=== PATIENT | male | born 1990 | race Caucasian/White ===

== ENCOUNTER 2024-08-04 15:45 | Emergency (ER) | payer OTHER, SELFPAY ==
[2024-08-04 15:50] VITALS: BP 120/89
[2024-08-04 16:14] LABS: % Basophils 0.4 % (0-2); % Eosinophils 2.5 % (0-6); % Immature Granulocytes 0.5 % (0-0.5); % Lymphocytes 9.4 % (20.5-51.1); % Monocytes 8.4 % (1.7-9.3); % Neutrophils 78.8 % (42.2-75.2); Absolute Basophils 0.1 10^3/uL (0-0.2); Absolute Eosinophils 0.4 10^3/uL (0-0.7); Absolute Immature Granulocytes 0.1 10^3/uL (0-0.05); Absolute Lymphocytes 1.6 10^3/uL (1.2-3.4); Absolute Monocytes 1.4 10^3/uL (0.1-0.6); Absolute Neutrophils 13.1 10^3/uL (1.4-6.5); Hematocrit 41.9 % (39.0-52.0); Hemoglobin 14.5 g/dL (13.0-18.0); Mean Corp Hgb Conc. 34.6 g/dL (33.0-37.0); Mean Corpuscular Hgb 29.5 pg (27.0-31.0); Mean Corpuscular Volume 85.2 fL (80.0-94.0); Nucleated Red Blood Cells % 0 % (-); Platelet Count 282 10^3/uL (130-400); Red Blood Cell Count 4.92 10^6/uL (4.70-6.10); Red Cell Dist. Width 12.9 % (11.5-14.5); White Blood Cell Count 16.7 10^3/uL (4.8-10.8)
[2024-08-04 16:24] LABS: ALT (SGPT) 53 U/L (0-50); AST (SGOT) 26 U/L (17-59); Albumin 4.6 g/dl (3.5-5.0); Alkaline Phosphatase 30 U/L (38-126); Blood Urea Nitrogen 15 mg/dl (9-20); Calcium 9.4 mg/dl (8.4-10.2); Carbon Dioxide 26 mmol/L (22-30); Chloride 99 mmol/L (98-107); Glucose 101 mg/dl (70-99); Potassium 4.4 mmol/L (3.5-5.1); Sodium 139 mmol/L (135-145); Total Bilirubin 1.4 mg/dl (0.2-1.3); Total Protein 7.8 g/dl (6.3-8.2); eGFR > 60.00
[2024-08-04 16:29] LABS: Lipase 22 U/L (23-300)
[2024-08-04 18:00] VITALS: BP 112/78
[2024-08-04] MEDS: NSS 1000 IV (18:17)
[2024-08-04] MEDS: TORADOL 30 MG IV (18:17)
[2024-08-04] MEDS: ZOFRAN 4 MG IV (18:17)
--- NOTE | 2024-08-04 18:17 | ED.GENMED ---
History of Present Illness
General
Chief Complaint: Abdominal Pain
Source: patient
Time Seen by Provider: 08/04/24 17:58
History of Present Illness
History of Present Illness:
32-year-old male with no significant past medical history presenting to the emergency department for evaluation of abdominal pain mainly along the left side accompanied with nausea, decreased p.o. intake and some loose stool that has been ongoing
for about 3 days where the pain has been more pronounced but does note around a month ago was having some generalized abdominal discomfort but that had resolved on its own. Patient initially thought the pain was related to nerves and anxiety over
getting engaged at the beginning of the month and does believe his symptoms did improve following this but that the pain started up again 3 days ago but this time much worse. Patient denies any fevers but does admit to some chills. Mild nausea
without any vomiting, also notes yesterday he urinated approximately 15 times and states the urine was a little bit 'frothy'. Social history was noted for quitting tobacco/chew 4 years ago. Surgical history was noncontributory
Past History
Past History
ED Past Medical History: None
ED Past Surgical History: Orthopedic (Knee surgery)
Social History
Tobacco: Former smoker
Alcohol: Occasional
Drug: None
Personal: Single
Living: with family
Employment: Not employed
Family History
Family History: Diabetes (Grandparents with history of diabetes); Negative Early CAD
Review of Systems
Review of Systems
All Other Systems: ROS reviewed and negative except as documented in HPI and ROS
Phy Exam
Physical Exam
Physical Exam:
GENERAL: Alert , in no apparent distress, overweight
EYE: clear conjunctiva b/l
HEAD: NCAT
ENT: o/p clr, mmm.
CARDIAC: Borderline tachycardic rate and rhythm
LUNGS: Clear breath sounds bilaterally, no acute respiratory distress, no wheezes/rales/rhonchi
ABDOMEN: Soft, moderate tenderness within the left mid abdomen, no r/g, grimacing with palpation of the mid abdomen along the left side
NEUROLOGICAL: Alert and oriented
SKIN: Warm and dry, skin intact.
MUSCULOSKELETAL: well perfused.
PSYCH: Normal and appropriate interaction.
Scores
Heart Failure Risk
Heart Failure Risk Score: Not Applicable
Heart Score for Chest Pain Patients
STEMI patient?: Not applicable
Withdrawal Assessment of Alcohol
Withdrawal Assessment Completed?: Not applicable
Course
Orders/Labs/Results
Orders:
Orders
08/04/24 16:02
Complete Blood Count/With Diff Urgent
Comprehensive Metabolic Panel Urgent
Lipase Urgent
08/04/24 18:08
CT Abd/pelvis W Iv Cont Urgent
Comment:
Reason For Exam: left sided abd pain, decreased PO intake
0.9% Sodium Chloride 1000 ml [Nss] 1,000 ml IV BOLUS
Ketorolac [Toradol] 30 mg IV NOW STA
Ondansetron Injectable [Zofran] 4 mg IV NOW STA
08/04/24 19:42
Amoxicillin 875 mg/Clav 125 mg [Augmentin 875 mg/125 mg] 1 tablet PO NOW STA
Abnormal Lab Results
08/04/24
16:02
WBC 16.7 H 10^3/uL
(4.8-10.8)
Abs Immat Gran (auto) 0.1 H 10^3/uL
(0-0.05)
Absolute Neuts (auto) 13.1 H 10^3/uL
(1.4-6.5)
Absolute Monos (auto) 1.4 H 10^3/uL
(0.1-0.6)
Neutrophils % 78.8 H %
(42.2-75.2)
Lymphocytes % 9.4 L %
(20.5-51.1)
Glucose 101 H mg/dl
(70-99)
Total Bilirubin 1.4 H mg/dl
(0.2-1.3)
ALT 53 H U/L
(0-50)
Alkaline Phosphatase 30 L U/L
(38-126)
Lipase 22 L U/L
(23-300)
08/04/24 16:02
08/04/24 16:02
Vital Signs
Initial and Last Documented VS:
Initial Vital Signs
Temp Pulse Resp BP Pulse Ox
99.6 F 102 20 120/89 98
08/04/24 15:50 08/04/24 15:50 08/04/24 15:50 08/04/24 15:50 08/04/24 15:50
Last Documented Vital Signs
Temp Pulse Resp BP Pulse Ox
98.5 F 74 18 125/78 100
08/04/24 19:41 08/04/24 19:41 08/04/24 19:41 08/04/24 19:41 08/04/24 19:41
MDM/Problems Addressed
Differential Diagnosis Includes:
colitis, diverticulitis, GERD, gastritis, hiatal hernia, pancreatitis, appendicitis, electrolyte derangement, less concern for UTI
MDM/Problems Addressed:
33-year-old male presenting to the emergency department for evaluation of GI symptoms that have been gradually worsening over the last 3 days. Pain clearly reproducible within the left mid abdomen labs were initiated while in triage and patient has
a leukocytosis of 16,000. There is also mild elevation of his ALT which I suspect is likely reactive. Lipase within normal limits. Will send urinalysis although I am less suspicious for UTI/pyelonephritis. CT of the abdomen and pelvis ordered.
Symptom relief with Toradol and Zofran as well as IV fluids
*Radiology
Radiology exam reviewed: radiology read reviewed
*Pulse Oximetry
Patient hypoxic: no
*Critical Care Note
Total Time (30-74mins, 75-104mins- exclusive of procedures): Not Applicable
Data Reviewed
Review of Other/Old Records Reveals: Labs
Source: patient, records and family
Patient Management
Escalation/DeEscalation of care consider admission/obs:
Patient CT scan shows mild acute uncomplicated diverticulitis. Currently pain-free and feels well to go home. Aware of return precautions to the ER. Prescription for Augmentin given. Information for GI provided. I encouraged patient contact GI
for follow-up as he may need colonoscopy in 6 to 8 weeks once acute symptomatology has resolved. Patient expressed understanding.
ED Attending Note
-
Portions of this chart may have been created with voice recognition software.� Occasional wrong word or��sound alike� substitutions may have occurred due to the inherent limitations of voice recognition software.
Discharge Plan
Departure
Patient Disposition: Home (Routine Discharge)
Date of Disposition: 08/04/24
Time of Disposition: 19:41
Patient with high blood pressure during this ER visit?: No
Discharge Problem:
Diverticulitis
Instructions: Diverticulitis (DC)
Prescriptions:
New
amoxicillin-pot clavulanate 875-125 mg tablet
1 tab PO BID 10 Days Qty: 19 0RF
No Action
sulfamethoxazole-trimethoprim 1 TABLET tablet
1 tab PO BID
levothyroxine 50 MCG tablet
50 mcg PO DAILY
oxycodone-acetaminophen 1 TABLET tablet
1 - 2 tab PO Q4HPRN PRN (Reason: prn for pain) Qty: 20 0RF
valacyclovir [Valtrex] 1,000 MG tablet
1,000 mg PO TID Qty: 30 0RF
lidocaine HCl [Lidocaine HCl Viscous] 2 % solution
15 ml PO TIDPRN PRN (Reason: mouth pain) Qty: 300 0RF
oxycodone-acetaminophen 5 MG/325 MG tablet
1 tab PO Q6HPRN PRN (Reason: pain) Qty: 8 0RF
Referrals:
Abran Thomas DO [Family Provider] -
Bobbi Jeffers MD [Active] - (Gastroenterology)
Interventions
Interventions:
*Risk Screen - Suicide Last Done: 08/04/24 15:56
*General Assessment Last Done: 08/04/24 15:56
*Neglect/Abuse Screening Last Done: 08/04/24 15:56
ED- Fall Risk Assessment Last Done: 08/04/24 18:27
*Nursing Disposition Last Done: 08/04/24 19:42
[facility] Assessment Last Done: 08/04/24 18:27
Discharge Date and Time
Discharge Date/Time: 08/04/24 19:48
Print Language: BHUTANESE
[2024-08-04 19:41] VITALS: BP 125/78
[2024-08-04] MEDS: AUGMENTIN 875 MG/125 MG 1 TABLET PO (19:45)
== END 2024-08-04 19:48 | disposition home or self-care (01) ==
LOC: EMR 15:45
PROVIDERS: Student in an Organized Health Care Education/Training Program; EMERGENCY PHYSICIAN Emergency Medicine; FAMILY PHYSICIAN Family Medicine
DX: K57.32 Diverticulitis of large intestine without perforation or abscess without bleeding (principal); R11.0 Nausea; Z87.891 Personal history of nicotine dependence
CPT/HCPCS: 99285; 96375; 96361; 96374; 74177; 80053; 83690; 85025; Q9967

== ENCOUNTER 2025-04-19 06:19 | Day surgery (SDC) | payer OTHER, SELFPAY ==
[2025-04-19 12:20] VITALS: BMI 57.3
[2025-04-19 12:30] VITALS: BP 133/92
[2025-04-19 14:38] VITALS: BP 144/87
[2025-04-19 14:45] VITALS: BP 158/78
[2025-04-19 15:00] VITALS: BP 158/137
[2025-04-19 15:02] VITALS: BP 148/79
== END 2025-04-19 15:10 | disposition home or self-care (01) ==
LOC: SDS 06:19
PROVIDERS: ATTENDING PHYSICIAN Internal Medicine Gastroenterology
DX: K63.5 Polyp of colon (principal); K57.30 Diverticulosis of large intestine without perforation or abscess without bleeding; R93.3 Abnormal findings on diagnostic imaging of other parts of digestive tract; Z87.19 Personal history of other diseases of the digestive system
CPT/HCPCS: 45385; 88305

== ENCOUNTER 2025-05-26 05:02 | Emergency (ER) | payer OTHER, SELFPAY ==
[2025-05-26 05:06] VITALS: BP 141/94
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
[2025-05-26] MEDS: MOTRIN 800 MG PO (05:38)
[2025-05-26] MEDS: CORTISPORIN OTIC SUSPENSION 4 DROP OTIC (05:38)
== END 2025-05-26 05:48 | disposition home or self-care (01) ==
LOC: EMR 05:02
PROVIDERS: EMERGENCY PHYSICIAN Emergency Medicine
DX: H60.501 Unspecified acute noninfective otitis externa, right ear (principal); Z87.891 Personal history of nicotine dependence; H66.91 Otitis media, unspecified, right ear
CPT/HCPCS: 99283